=== PATIENT | female | born 1965 | race Caucasian/White ===

== ENCOUNTER → 2021-05-31 18:00 | Outpatient (BNVA) | payer BC, SELFPAY | PROVIDERS: Visit Provider Nurse Practitioner Family | DX: R53.83 Other fatigue (principal); R63.1 Polydipsia; R35.8 Other polyuria; R35.1 Nocturia; H81.13 Benign paroxysmal vertigo, bilateral | CPT/HCPCS: 80053; 82728; 83036; 83550; 84443; 85025 ==

== ENCOUNTER → 2021-06-07 12:39 | Outpatient (BNVA) | payer BC, SELFPAY | PROVIDERS: Visit Provider Emergency Medicine | DX: Z20.822 Contact with and (suspected) exposure to COVID-19 (principal) | CPT/HCPCS: 87635 ==